=== PATIENT | male | born 1945 | race Caucasian/White ===

== ENCOUNTER 2019-01-17 12:41 | Day surgery (SDC) | payer OTHER, MEDICAID, SELFPAY ==
[2019-01-14 14:57] VITALS: BMI 30.4
[2019-01-17] VITALS (8 sets, daily range): BP systolic 99–154; BP diastolic 56–98; PULSE 74–79; RESP 13–17; TEMP 36.3–36.4; O2SAT 89–97; BMI 29.0
--- NOTE | 2019-01-17 | PATH_ITS ---
[facility] Accession Number: [id number] . 01 Material submitted: . bursa - LEFT ELBOW BURSA . 01 Diagnosis: Soft Tissue, Left Elbow, Excision: Gouty tophus, with cystic degeneration. MRV 01/22/2019 0948 Local . 01 Electronically signed: . June Turner MD, Pathologist NPI- [id number] . 01 Gross description: . Received in formalin, labeled left elbow bursa, is an opened abad-yellow rubbery bursa (11.5 x 7.8 x 3.0 cm) containing multiple white loose bodies with chalky cut surfaces (4.2 x 3.2 x 0.6 cm in aggregate). The bursa cut surface is aranda-white, semi-translucent, focally bright white and chalky. Line Service Attendant serial sections submitted in cassettes A1-A4. ([id number]) /MRV 01/18/2019 1509 Local . 01 Pathologist provided ICD-10: M70.32 . 01 CPT . 263398 Performed at: [address] [facility] [address], [place], [place] [id number] MD Juan Marquez MD Phone: [phone]
[2019-01-17] MEDS: LACTATED RINGERS 1,000 ML 42 ML IV ×2 (13:50→16:21)
--- NOTE | 2019-01-17 14:43 | PM.PREOP ---
Pre-operative Note Interval Note History & Physical reviewed/Exam performed by Physician: Yes Changes to H&P: No
--- NOTE | 2019-01-17 14:43 | PM.OP.1 ---
Operative Date/Time/Diagnoses Date of procedure: 01/17/19 Time of procedure: 15:43 Pre-op diagnosis: Severe left olecranon bursitis Post-op diagnosis: same Procedure & Clinicians Procedure: Left olecranon bursectomy Same procedure as scheduled: Yes Indications: This is a 73-year-old gentleman with the large tense mass on his left leg and olecranon on bursal region which has not responded to conservative care who notes that it is painful and is worried about skin issues is brought the operating room for excision of the left olecranon bursa. Surgeon: Francine West Click Yes if Unassisted: Yes Anesthesia Type: General Operative Notes Findings: Large approximately 14 cm olecranon bursa Closure Type: primary Specimen(s): none sent Estimated Blood Loss (mL): 50 Blood products transfused: none Procedure in detail: Patient was brought to the operating room where he underwent the induction of a general anesthesia. Time-out was performed and IV antibiotics were given. His left upper extremities prepped draped standard sterile fashion. A elbow lateral incision was made over the elbow over the left olecranon dissection was carried out through skin and subcutaneous tissues. There was a very large approximately 14-15 cm bursal sac which had staining which was consistent with gout. There was severe thickening of the bursal tissue and a moderate amount of fluid it was 15 by about 8 cm. Dissection was meticulously carried down around the bursal sac and it was carefully removed. Attention was directed at protecting the ulnar nerve. The bursa was moderately adherent to the underlying olecranon and triceps tendon and in a mild to moderately adherent to the overlying skin. Meticulous dissection was carried out and a specific attempt to avoid buttonholing was successful. The bursa was removed as a single entity and it was sent for pathology as well as culture and sensitivity. There was moderate fluid in the bursa which was clear. It did not look like findings consistent with at a deep infection. All gouty appearing tissue that was present in the subcutaneous tissues was carefully removed. The wound was meticulously irrigated with normal saline. Marcaine was carefully injected. There was significant redundant skin even with the elbow in maximum flexion. A small amount of skin was excised in order to remove some of the hyper redundancy. Patient placed her range of motion there was no tension on the skin patient had full range of motion. The skin was lightly tagged with several stitches down to the subcutaneous tissues and olecranon region in order to avoid a large recurrence cavity. A TLS drain was placed. Skin was closed with interrupted henna. Xeroform and antibiotic ointment were used to further close the wound. Suction was applied and it did not appear to have a leak. The wound was dressed with 4x4s and a Kerlix and an Bart wrap. Patient tolerated procedure well was transferred recovery room in satisfactory condition. Complications: none Post-operative Condition: stable Disposition: same day surgery Plan for aftercare: Patient will be discharged to home with a small TLS drain in which can be removed tomorrow in the office. He can do active range of motion for his elbow but should avoid heavy lifting for 2 weeks postoperatively. We will keep the henna in for 2 weeks postoperatively.
[2019-01-17] MEDS: CEFAZOLIN 2 GM/100 ML FROZ.PIGGY IV (15:28)
--- NOTE | 2019-01-17 15:49 | SUR.OPER ---
Supine on padded OR bed, head on pillow,right arm secured on padded arm boards at <90 degrees abduction, left arm draped free on black arm table, legs uncrossed, safety belt at thigh, tape over blanket over lower legs.
[2019-01-17] MEDS: BUPIVACAINE 0.5% (PF) VIAL 30 ML INJ (15:58)
== END 2019-01-17 17:40 | disposition home or self-care (01) ==
PROVIDERS: Visit Provider Orthopaedic Surgery
PROC: (CPT 24105; principal; 2019-01-17 15:15)
DX: M70.32 Other bursitis of elbow, left elbow (principal); M19.90 Unspecified osteoarthritis, unspecified site; I10 Essential (primary) hypertension; Z87.39 Personal history of other diseases of the musculoskeletal system and connective tissue
CPT/HCPCS: 24105; 87070; 87075; 87205; J0690; J1100; J2405; J2704; J3010

== ENCOUNTER → 2019-02-06 09:29 | Outpatient (ROUT) | payer OTHER, MEDICAID, SELFPAY ==
[2019-02-06 10:01] LABS: Body Fluid Red Blood Cells 35437 /uL; Body Fluid Tot Nucleated Cells 5928 /uL
[2019-02-06 10:03] LABS: Body Fluid Appearance CLOUDY; Body Fluid Clotted? NO CLOTS PRESENT; Body Fluid Color BROWN
[2019-02-06 10:14] LABS: Crystals Body Fluid - IN-HOUSE NONE Present
[2019-02-06 10:45] LABS: Mononuclear WBC Body Fluid 6 %; Polynuclear WBC Body Fluid 94 %
== END ==
PROVIDERS: Visit Provider Orthopaedic Surgery
DX: M70.21 Olecranon bursitis, right elbow (principal); M25.521 Pain in right elbow
CPT/HCPCS: 87070; 87075; 87077; 87147; 87186; 87205; 89051; 89060